=== PATIENT | female | born 1945 | race African-American/Black ===

== ENCOUNTER 2016-10-23 22:36 | Inpatient (IN) | payer MEDICARE, OTHER ==
--- NOTE | ~2016-10-23 | CO ---
Unit #: [id number] #: [id number] Patient: CLAIRE BAUTISTA [id number] [facility]. [address] [place], [place] [address] [id number] I MR#: [id number] NAME: CLAIRE BAUTISTA ROOM: 55 Age: 71 Sex: F Admission Date: 10/24/2016 : 1945 Attending Physician: Wilian Barrios M.D. Primary Care Physician: Arely Rodriguez M.D. Consultation Date: 10/27/2016 CONSULTATION REPORT REASON FOR CONSULTATION Dyspnea. HISTORY OF PRESENT ILLNESS This is a 71-year-old female, who presented to the hospital with a complaint of lower extremity edema. She states she has had swelling in both of her legs for the past one week, but this has occurred for her off and on for quite some time. She also complains of shortness of breath mostly on exertion, but has occurred at rest. She noted an increase in her abdominal girth, but unsure of weight gain. Upon further questioning, she states she has sharp left anterior and left inframammary chest pain that radiates to her mid back, lasted for 5 minutes at that time. Her pain occurs off and on and has been ongoing for while. She has sometimes associated diaphoresis and dyspnea. No nausea. Chest pain and shortness of breath has awakened her from sleep. She was discharged from [facility] in mid 09/2016 with pulmonary embolism where she was started on Eliquis. She came to the emergency room for evaluation, where chest x-ray show cardiomegaly, but there was no evidence of heart failure. Bilateral lower extremity Doppler was negative for deep vein thrombosis. BNP mildly elevated at 272. D-dimer 468. Her troponin was negative with EKG showing no acute findings. She has risk factors for ischemic heart disease that includes hypertension, hyperlipidemia, diabetes, and obesity. She was seen by a quality assistant at this facility in 2013 for chest pain that was negative. She has no history of cardiac catheterization in the past. PAST MEDICAL HISTORY 1. A 2D echocardiogram on 10/24/2016 showed an ejection fraction equal to 50% to 55% with mild mitral regurgitation, [id number] tricuspid regurgitation, and right ventricular systolic pressure of 28 mmHg. 2. Hypertension. 3. Hyperlipidemia. 4. Diabetes mellitus type 2. 5. Peripheral neuropathy. 6. Rheumatoid arthritis. 7. Asthma. 8. PE diagnosed in 09/2015, on Eliquis. 9. History of seizures 5 years ago. PAST SURGICAL HISTORY 1. Bilateral total knee replacements. 2. Appendectomy. 3. Hysterectomy. Unit #: [id number] #: [id number] Patient: CLAIRE BAUTISTA SOCIAL HISTORY The patient lives at home alone. She has never smoked. She denies illicit drug or alcohol use. FAMILY HISTORY Negative for coronary artery disease. ALLERGIES No known drug allergies. HOME MEDICATIONS Amitriptyline 25 mg q.h.s., Norvasc 10 mg daily, Eliquis 5 mg b.i.d., aspirin 325 mg daily, Lipitor 40 mg daily, baclofen 10 mg b.i.d. p.r.n., carvedilol 40 mg daily, Zyrtec 10 mg daily, Catapres 0.2 mg b.i.d., docusate sodium 100 mg b.i.d., Flonase 0.05% nasal spray one spray each nostril daily, Advair 100/50 Diskus one puff b.i.d., furosemide 20 mg daily, Neurontin 100 mg q.i.d., glipizide 5 mg daily, guaifenesin 600 mg b.i.d., Prinivil 40 mg daily, loratadine 10 mg daily. REVIEW OF SYSTEMS CONSTITUTIONAL: Negative for fever or chills. Has no weight gain or weight loss. HEENT: No headache, hearing or vision change, or difficulty with swallowing. Has no dizziness. CARDIOVASCULAR: Has chest pain as described in the HPI. Denies palpitations. No paroxysmal nocturnal dyspnea or orthopnea. No syncope or near syncope. RESPIRATORY: Positive for dyspnea at rest and on exertion. Has no cough or hemoptysis. GASTROINTESTINAL: No abdominal pain, nausea, or vomiting. No constipation or melena. EXTREMITIES: Positive for lower extremity edema. PHYSICAL EXAMINATION VITAL SIGNS: Blood pressure is 167/76, heart rate 86, temperature 99.1, BMI 31. GENERAL: This is an obese 71-year-old female, who is in no acute distress. NEUROLOGIC: She is awake, alert, and oriented. There are no focal weaknesses. NECK: Trachea is midline. No thyromegaly or lymphadenopathy. No jugular venous distention. HEART: S1, S2. Heart sounds are normal. No murmurs, rubs, or clicks. Regular rate and rhythm. LUNGS: Clear without rales, rhonchi, or wheezing. ABDOMEN: Soft and nontender with bowel sounds are present. EXTREMITIES: With 1+ leg edema. SKIN: Warm and dry. DIAGNOSTIC STUDIES LABORATORY RESULTS: Glucose 95, BUN 15, creatinine 0.8. Sodium 130, potassium 3.9. CK total 150, MB 1.5, MB index 1.0, troponin less than 0.05 and less than 0.03. BNP 272. TSH 0.84. D-dimer 468. White count 4.4, hemoglobin 10.5, hematocrit 31.8, platelet count is 189. IMAGING STUDIES: Chest x-ray shows mild cardiomegaly, but no active Unit #: [id number] #: [id number] Patient: CLAIRE BAUTISTA disease. Ultrasound of bilateral lower extremities negative for deep vein thrombosis. CARDIOVASCULAR STUDIES: EKG; normal sinus rhythm, rate of 77 beats per minute with left ventricular hypertrophy. IMPRESSION 1. Dyspnea, questionable etiology. 2. Questionable angina pectoris. 3. Recent pulmonary embolism on 09/19/2016. 4. Hypertension. 5. Hyperlipidemia. 6. Diabetes mellitus type 2. PLAN 1. Cardiology was consulted for evaluation of dyspnea. Echocardiogram shows normal left ventricular systolic function with no diastolic dysfunction noted. Lower extremity edema may be secondary to Norvasc. 2. The patient has multiple risk factors for ischemic heart disease and has symptoms of angina pectoris. We will proceed with Lexiscan Cardiolite stress test to rule out coronary artery disease. Unable to do cardiac catheterization, because of recent pulmonary embolism and the need to continue anticoagulation with Eliquis. 3. We will follow the patient with you. Thank you for allowing us to assist with this patient's care. Dictated by... Sophia Magaña M.D. AEP/parker TD: 10/28/2016 05:05 JOB #: [id number] CONSULTATION REPORT Page 1 of 1 X Bin Currie APRN CONSULTATION REPORT
--- NOTE | ~2016-10-23 | EKG ---
PATIENT: CLAIRE BAUTISTA UNIT #: [id number] Ventricular Rate: 113 BPM Atrial Rate: 288 BPM QRS Duration: 82 ms Q-T Interval: 332 ms QTC Calculation(Bezet): 455 ms Calculated R [place]: 58 degrees Calculated T [place]: 63 degrees Diagnosis Line: Atrial fibrillation with rapid ventricular Diagnosis Line: response with premature ventricular or aberrantly Diagnosis Line: conducted complexes Diagnosis Line: Abnormal ECG Diagnosis Line: No previous ECGs available Diagnosis Line: Confirmed by MAYLIN RITCHIE MD ([id number]) on Diagnosis Line: 11/02/2016 1:13:56 PM INTERPRETING MD: JAMILA
--- NOTE | ~2016-10-23 | TH ---
Unit #: [id number] #: [id number] Patient: CLAIRE BAUTISTA [id number] [address] [address] [id number] I MR#: [id number] NAME: CLAIRE BAUTISTA : 1945 SEX: F STUDY DATE/TIME: 10/28/2016 UNIT: C5B ROOM: 554 STUDY DESCRIPTION: Cardiolite study Attending Physician: Wilian Barrios M.D. Primary Care Physician: Arely Rodriguez M.D. CARDIOLOGY REPORT EXAM Cardiolite study. FINDINGS This 71-year-old patient received 0.4 mg of Lexiscan intravenously followed by 32.6 mCi of Tc-99m Cardiolite and images were obtained according to a standard SPECT protocol. For rest images, 10.62 mCi of Cardiolite was injected. Images were reviewed in both phases. The overall study quality is excellent. LV cavity size is normal on both images. There is no lung activity. RV is normal. Rotating raw data showed no significant artifact, soft tissue attenuation or GI uptake. Review of SPECT images showed normal homogeneous radiotracer concentration throughout the myocardium on both the stress and rest images. Gated images showed normal LV wall thickening and wall motion with an estimated LV ejection fraction 82%. IMPRESSION Myocardial perfusion imaging is normal. No evidence of ischemia or infarct. Normal LV dimensions. Normal systolic LV function with an estimated LV ejection fraction 82%. Dictated by... Kristi Rider/rogelio TD: 10/29/2016 11:16 JOB #: [id number] CARDIOLOGY REPORT Page 1 of 1 X Sudha Lorenzo MD CARDIOLOGY REPORT
--- NOTE | ~2016-10-23 | TOC ---
Unit #: [id number] #: [id number] Patient: CLAIRE BAUTISTA [id number] [facility]. [address] [place], [place] [address] [id number] I MR#: [id number] NAME: CLAIRE BAUTISTA ROOM: 554 Age: 71 Sex: F Admission Date: 10/24/2016 : 1945 Attending Physician: Wilian Barrios M.D. Primary Care Physician: Arely Rodriguez M.D. TRANSFER OF CARE SUMMARY ADDENDUM The patient completed her course of amiodarone drip and converted to sinus rhythm. Amiodarone drip was discontinued at noon today and patient received her first dose of amiodarone 200 mg p.o. today. She will continue this medication daily. Her rhythm per telemetry strip review is sinus rhythm, most recent heart rate 79. She has been evaluated by Dr. Sparks and he has indicated that she can be discharged on her present dose of amiodarone and present dose of beta blockers. She remains in stable condition, is afebrile. Vital signs are stable. DISCHARGE MEDICATIONS Per discharge medication reconciliation form: 1. Advair 100/50 Diskus 100 mcg inhaled b.i.d. 2. Cordarone 200 mg p.o. at noon. Prescription written for #30 with one refill. 3. Flonase 0.05% nasal spray one spray in each nostril daily. 4. Bactroban applied topically b.i.d. to left lower extremity wound. Bedside supply to be sent home with patient. 5. Eliquis 5 mg p.o. b.i.d. 6. Neurontin 100 mg p.o. t.i.d. 7. Amitriptyline 25 mg p.o. at bedtime. 8. Nystatin 5 mL swish and swallow p.o. q.6 hours until completes oral antibiotic therapy. 9. Loratadine 10 mg p.o. daily. 10. Coreg 12.5 mg p.o. b.i.d. 11. Colace 100 mg p.o. b.i.d. 12. Cephalexin 500 mg p.o. q.i.d. x6 more days for a total of 10 days of oral antibiotic therapy. Prescription written #24, no refills. 13. Furosemide 40 mg p.o. daily. 14. Humibid LA 600 mg p.o. b.i.d. 15. Lipitor 40 mg p.o. at bedtime. 16. Cozaar 100 mg p.o. at bedtime. Prescription written #30 plus one refill. 17. Zantac 150 mg p.o. b.i.d. over the counter. 18. Aspirin 81 mg p.o. daily. 19. Lioresal 10 mg p.o. b.i.d. p.r.n. muscle spasms. 20. Glucotrol 5 mg p.o. daily before breakfast. 21. KCl 20 mEq p.o. daily. Prescription written #30, no refills. WOUND CARE INSTRUCTIONS The patient's left lower extremity wound is to be cleaned with (1) wound cleanser, which is to be sent home with patient. Wound is to be cleansed b.i.d. The wound is to be covered with Hydrofera Blue Ready and Unit #: [id number] #: [id number] Patient: CLAIRE BAUTISTA secured with stretch netting. She is to keep the wound clean and dry. DISCHARGE INSTRUCTIONS 1. The patient is to continue 1000 mL per 24 hour fluid restriction until seen by her primary care physician for followup. 2. She is to continue on a 4 g sodium healthy heart diet with mechanical ground consistency per hospital diet. 3. She is to call and schedule a followup appointment with Dr. Rodriguez, her primary care physician, in five to seven days to follow up on general medical evaluation and left lower extremity wound. 4. She is to call and schedule followup appointment with Dr. Gore in her office to be seen in four to six weeks. 5. Home health. The patient has been given an order and is agreeable to be followed by [facility] after discharge for compliance with fluid restriction and to evaluate left lower extremity wound. They are also to educate her in healthy heart 4 g sodium diet. Discharge instructions have been discussed in detail with the patient and her significant other, who is present in the room today. They verbalized understanding of this information and their questions were answered. Dictated by... Frieda Abernathy A.P.R.N. for Kristi Quintanilla/fahad TD: 11/02/2016 16:33 JOB #: [id number] TRANSFER OF CARE SUMMARY Page 1 of 1 X Frieda Abernathy APRN X TRANSFER OF CARE SUMMARY
--- NOTE | ~2016-10-23 | CR72 ---
[facility] A Service of [facility] & [facility] RADIOLOGY TEXT RESULTS PATIENT: CLAIRE BAUTISTA LOCATION: [facility] [id number] : [birth year] UNIT #: [id number] AGE: [address]: Susana Duggan MD SEX: F ORDER DR: [id number] [facility] [address]. [place], [place] [address] [id number] MR#: [id number] #: [id number] NAME: CLAIRE BAUTISTA : 1945 SEX: F STUDY DATE/TIME: 10/23/2016 23:04 UNIT: [facility] ROOM: STUDY DESCRIPTION: CR Chest Single View Portable Attending Physician: Maxim Helm M.D. Ordering Physician: Ed Vladimir Keller M.D. Primary Care Physician: Arely Rodriguez M.D. MEDICAL IMAGING REPORT This report is preliminary unless electronic signature is present EXAM Portable chest 10/23/2016 at 23:04 INDICATION Chest pain bilateral leg swelling started today. FINDINGS AP portable chest is therefore with 09/14/2016. There is mild cardiomegaly. Lungs are clear. No pneumothorax is seen. There is atherosclerotic disease in the aorta. IMPRESSION Mild cardiomegaly. No active disease. Dictated by... Yevgeniy Dawn Jr., M.D. THIS IS AN ELECTRONICALLY VERIFIED REPORT Yevgeniy Dawn Jr., M.D. at 10/24/2016 6:01 AM SARAH/juan luis TD: 10/24/2016 03:49 JOB #: [id number] MEDICAL IMAGING REPORT Page 1 of 1 COPY
--- NOTE | ~2016-10-23 | A ---
[facility] Nutrition Therapy DATE: 10/27/16 Patient: CLAIRE BAUTISTA Physician: LUCA Address: [address] [place] [address] Room/Bed: [address] [place] [address], Zip: [place] [address] Admit Date: 10/24/16 Date of : 45 Height: Weight: 213 97 NUTRITIONAL ASSESSMENT: REASON: Notified by PT; patient request for diabetic diet education Admitting Dx: 71 y/o female admitted with chest pain and pedal edema PMH: GERD, DM, PE, HTN, GUZMAN, HLD, asthma, neuropathy Anthropometrics: Ht: 64", Wt: 97 kg, BMI: 36.7 (Stage II obese) Labs: Na 130, glucose WNL, POC 114-140, no A1C or lipid panel available Meds: Reviewed Diet: Mechanical soft/consistent carb Assessment: Chart reviewed, events noted. Patient requested diabetic diet education. No A1C lab or lipid panel available, glucose well controlled at this time on oral medications only. Patient has had diabetes for ~4 years, states she is unsure of her A1C level. RD provided both verbal and written diabetic diet education with 5-day 1500 calorie sample meal plan and contact info. Patient wants to lose weight, seems motivated to follow diet however I question her understanding of the information based on her education level. Family member in room present for education. Encouraged patient to have her PCP check her A1C level. See recs below. Recommendations: Continue current diet. Check A1C lab. RD provided diabetic diet education as desribed above. Will fully assess at lenght of stay. Respectfully, Delmi Gates RD, [facility] [employer] [facility] cc: client file
--- NOTE | ~2016-10-23 | ST ---
Unit #: [id number] #: [id number] Patient: CLAIRE BAUTISTA [id number] [address] [address] [id number] I MR#: [id number] NAME: CLAIRE BAUTISTA : 1945 SEX: F STUDY DATE/TIME: 10/28/2016 UNIT: C5B ROOM: 554 STUDY DESCRIPTION: Stress test Attending Physician: Wilian Barrios M.D. Primary Care Physician: Arely Rodriguez M.D. CARDIOLOGY REPORT EXAM Stress test. FINDINGS Baseline EKG: Normal sinus rhythm. Nonspecific ST-T changes. Resting heart rate: 71 per minute. Blood pressure: 193/96. This 71-year-old patient received 0.4 mg of Lexiscan intravenously. During the test, no ischemic changes noted. No arrhythmias noted. Blood pressure was stable. INTERPRETATION 1. Nondiagnostic EKG during Lexiscan. 2. No arrhythmias noted. 3. Stable blood pressure during the test. 4. Correlate with the Cardiolite study. Dictated by... Kristi Rider/rogelio TD: 10/29/2016 11:07 JOB #: [id number] CARDIOLOGY REPORT Page 1 of 1 X Sudha Lorenzo MD CARDIOLOGY REPORT
--- NOTE | ~2016-10-23 | US84 ---
[id number] [facility]. [facility] [address]. [place], [place] [address] [id number] MR#: [id number] Acc #: [id number] NAME: CLAIRE BAUTISTA : 1945 SEX: F STUDY DATE/TIME: 10/24/2016 16:16 UNIT: C5B ROOM: 554 STUDY DESCRIPTION: US LE Veins Complete Fabien Stdy Attending Physician: Wilian Barrios M.D. Ordering Physician: Susana Duggan M.D. Primary Care Physician: Arely Rodriguez M.D. MEDICAL IMAGING REPORT This report is preliminary unless electronic signature is present EXAM Bilateral lower extremity venous ultrasound HISTORY Bilateral lower extremity swelling and tenderness for 3 days. The patient has been on blood thinners before. TECHNIQUE Venous ultrasound examination of both lower extremities was performed using grayscale, spectral Doppler and color flow Doppler imaging. FINDINGS The examination is negative. There is no evidence of deep venous thrombus from the groin to the lower calf bilaterally. Visualized greater saphenous veins are also patent. IMPRESSION Negative examination. No evidence of lower extremity deep venous thrombosis. Dictated by... Mahesh Spicer M.D. THIS IS AN ELECTRONICALLY VERIFIED REPORT Mahesh Spicer M.D. at 10/25/2016 8:41 AM FEL/to TD: 10/24/2016 18:28 JOB #: [id number] MEDICAL IMAGING REPORT Page 1 of 1 COPY
--- NOTE | ~2016-10-23 | TOC ---
Unit #: [id number] #: [id number] Patient: CLAIRE BAUTISTA [id number] [address] [place], [place] [address] [id number] I MR#: [id number] NAME: CLAIRE BAUTISTA ROOM: 554 Age: 71 Sex: F Admission Date: 10/24/2016 : 1945 Attending Physician: Wilian Barrios M.D. Primary Care Physician: Arely Rodriguez M.D. TRANSFER OF CARE SUMMARY ADMISSION DIAGNOSES 1. Bilateral pedal edema with weeping extremities. 2. Recent admission to [facility] for pulmonary embolus, on Eliquis. 3. Rheumatoid arthritis. 4. Hypertension. 5. Type 2 diabetes mellitus with peripheral neuropathy. 6. Asthma. CURRENT DIAGNOSES 1. Atrial fibrillation with rapid ventricular response, on amiodarone drip and beta-darrell. 2. Bilateral lower extremity edema, possibly secondary to Norvasc, improving. 3. Left lower extremity cellulitis, improving. 4. Diabetes mellitus type 2, stable. 5. Dyspnea status post Cardiolite stress test with negative Cardiolite and negative cardiac enzymes. 6. Gastroesophageal reflux disease. CONSULTANTS 1. Chucky Sparks M.D., cardiology. 2. ELENI Alaniz. PERTINENT DIAGNOSTIC STUDIES CARDIOVASCULAR: On 10/28/16, Cardiolite stress test. Impression - Myocardial perfusion imaging is normal. No evidence of ischemia or infarct. Normal LV dimensions. Normal systolic LV function with an estimated LV ejection fraction 82%. Twelve-lead EKG, 10/31/16 at 2036 - Atrial fibrillation with RVR with PVC or aberrantly conducted complexes. Abnormal ECG. IMAGING: On 10/24/16, bilateral lower extremity duplex venous Doppler. Impression - Negative examination. No evidence of lower extremity DVT. On 10/23/16, portable chest x-ray. Impression - Mild cardiomegaly. No active disease. LABORATORY (most recent results): WBC 8.1, hemoglobin 11.2, hematocrit 33.5, platelet count 238,000. Sodium 133, potassium 4.4, chloride 100, CO2 26, glucose 111, BUN 14, creatinine 0.9, calcium 8.4, magnesium 2.2. Left lower extremity wound culture final - Staphylococcus aureus sensitive to cefazolin and clindamycin, oxacillin, penicillin and vancomycin. Unit #: [id number] #: [id number] Patient: CLAIRE BAUTISTA Hemoglobin A1C 5.9. Accu-Cheks over the past 24 hours - 96 to 149. CURRENT MEDICATIONS 1. IV amiodarone 1 mg/min for 6 hours to be followed by 0.5 mg/minute. There is an order for the patient to be started on amiodarone 200 mg p.o. daily tomorrow and IV amiodarone discontinued tomorrow at noon. 2. Cozaar. 3. Neurontin. 4. Aspirin. 5. NovoLog low dose sliding scale insulin. 6. Cephalexin 500 mg p.o. q.i.d. 7. Nitroglycerin 0.4 mg sublingual p.r.n. chest pain q.5 minutes x3. 8. Furosemide. 9. Nystatin. 10. Zofran q.4 hours p.r.n. 11. Lipitor 40 mg p.o. q.h.s. 12. Amitriptyline 25 mg p.o. q.h.s. 13. Claritin 10 mg p.o. daily. 14. Humibid LA 600 mg p.o. daily. 15. Coreg 12.5 mg p.o. daily. 16. Eliquis 5 mg p.o. b.i.d. 17. Bactroban topically to left lower extremity wound. 18. Dulera 100 mcg/5 mcg 2 puffs inhaled b.i.d. NOTE: Please refer to current medications in [facility]. HOSPITAL COURSE The patient is a 71-year-old female who presented to [facility] on the date of admission with complaints of pedal edema and chest pain. Please refer to the history and physical report for complete details. Patient was admitted to the hospital for further evaluation and management of her condition. It was thought the pedal edema could possibly be related to vasodilator effects of Norvasc. It was discontinued. Patient was treated with IV diuretics, as she has experienced some decrease in bilateral lower extremity pedal edema. She was noted to have weeping of bilateral lower extremities on admission and ultimately developed a large (1) on the left pretibial area of the left lower extremity. Vale Smyth from wound care center was consulted for further evaluation and management of the patient's leg wound. This wound was evaluated by Dr. Barrios, and the patient was started on clindamycin. Results of the patient's left lower extremity wound culture returned, and the patient was changed from clindamycin orally to cephalexin 500 mg p.o. q.i.d. Per review of Dr. Barrios's documentation, she is to continue Keflex for a total of 10 days of antibiotic therapy. The left lower extremity cellulitis is improving at this time. Patient complained of dyspnea and had initially complained of some chest pain at the time of admission. She underwent a Lexiscan Cardiolite stress test with results as indicated above. Per review of Dr. Sparks's progress note yesterday, the plan is to ambulate the patient in the smyth and to possibly discharge home this morning. However, yesterday afternoon upon my examination, the patient was complaining of severe reflux without other associated symptoms. Upon discussion with Dr. Barrios, the plan was to reevaluate the patient this morning. In the early evening yesterday, patient was noted to exhibit atrial fibrillation with RVR. Dr. Sparks was notified, and the patient was given a Cardizem bolus and started on a Cardizem drip. Later last night the orders for the Cardizem drip were Unit #: [id number] #: [id number] Patient: CLAIRE BAUTISTA, and the patient was started on IV amiodarone, at which time she received 150 mg IV bolus followed by the drip as dictated above. Patient has been evaluated by Dr. Sparks today, whose plan is to continue beta-blockers and to start the amiodarone drip hopefully to convert and maintain sinus rhythm. The patient has been evaluated by Dr. Barrios today. At this time the patient is stable from a general medical and cardiac standpoint, and the plan will be to discharge the patient home once medically stable and cleared by cardiology. Please note the patient continues on Eliquis 5 mg p.o. b.i.d., which she has received since admission to this facility. Complete discharge medications and discharge instructions, as well as an update on the patient's condition, will be dictated by my colleague on the day of discharge. Dictated by... Frieda Abernathy A.P.R.N. for Kristi Kaufman/liam TD: 11/01/2016 15:05 JOB #: [id number] TRANSFER OF CARE SUMMARY Page 1 of 1 X Frieda Abernathy APRN X TRANSFER OF CARE SUMMARY
--- NOTE | ~2016-10-23 | HP ---
Unit #: [id number] #: [id number] Patient: CLAIRE BAUTISTA [id number] [address] [place], [place] [address] [id number] MR#: [id number] NAME: CLAIRE BAUTISTA ROOM: Age: 71 Sex: F Admission Date: 10/23/2016 : 1945 Attending Physician: Maxim Helm M.D. Primary Care Physician: Arely Rodriguez M.D. HISTORY AND PHYSICAL CHIEF COMPLAINT Pedal edema and chest pain. HISTORY This 71-year-old female with AODM, neuropathy, anticoagulated for pulmonary embolus, hypertension and GUZMAN, is admitted for complaints of pedal edema. The patient states that she has experienced pedal edema in the past and her Lasix was apparently stopped. Recently pedal edema has worsened bilaterally with weeping of her legs bilaterally. Also has been experiencing sharp right-sided chest pain. She tells me that she was admitted to [facility] about a month ago for chest pain and was diagnosed with a pulmonary embolus requiring anticoagulation with Eliquis. She has been taking her Eliquis. In the ER she does have significant swelling of her legs bilaterally with weeping. She was given 40 mg of IV Lasix and 10 mg of [place] with improvement. PAST MEDICAL HISTORY 1. AODM with peripheral neuropathy. 2. Admission to [facility] last month for what sounds to be a pulmonary embolus, now anticoagulated. 3. Rheumatoid arthritis. 4. Hypertension. 5. GERD. 6. Osteoporosis. 7. Hyperlipidemia. 8. Asthma. 9. Admission for chest pain and accelerated hypertension 04/2014. 10. Echo ejection fraction greater than 55% with mild LVH, mild MR, moderate TR. Right ventricular systolic pressures are 40 to 50 mmHg. Cardiolite stress test was negative for ischemia. 11. Bilateral total knee replacements. 12. Appendectomy. 13. Hysterectomy. ALLERGIES No known drug allergies. HOME MEDICATIONS Elavil 25 mg q.h.s.; Norvasc 10 mg daily; Eliquis 5 mg b.i.d.; aspirin 325 mg daily; Lipitor 40 mg daily; baclofen 10 mg b.i.d. p.r.n.; Coreg CR 40 mg daily; Zyrtec 10 mg daily; clonidine 0.2 mg b.i.d.; Colace 100 mg b.i.d.; Flonase nasal spray; Advair 100/50 one puff b.i.d.; Neurontin 100 Unit #: [id number] #: [id number] Patient: CLAIRE BAUTISTA R mg q.i.d.; glipizide 5 mg daily; guaifenesin 600 mg b.i.d.; lisinopril 40 mg daily; and Claritin 10 mg daily. FAMILY HISTORY Negative for blood clots or CAD. SOCIAL HISTORY The patient lives with her daughter. She is accompanied by her boyfriend. She is a lifelong nonsmoker and does not drink alcohol. REVIEW OF SYSTEMS Notable for leg edema and weeping, chest pain, AODM, neuropathy, RA, hypertension, GERD, osteoporosis, hyperlipidemia, asthma, above mentioned surgeries, pulmonary embolus. All other systems reviewed and otherwise negative. PHYSICAL EXAMINATION GENERAL: Pleasant 71-year-old female looks younger than stated age. VITAL SIGNS: Temperature 98.8, pulse 81, respiration 18, initial blood pressure 178/84. Current blood pressure has improved. O2 saturation 100% on room air. HEENT: Eyes - PERRLA, extraocular muscles are intact. Pharynx is benign, edentulous. NECK: Supple without adenopathy or thyromegaly. CHEST: Clear. CARDIAC: Normal S1 and S2 without definite murmur. ABDOMEN: Bowel sounds are present. No hepatosplenomegaly, tenderness or masses. EXTREMITIES: Notable for significant bilateral pedal edema with weeping lesions. Pedal pulses are present but diminished. No ulcers on the feet. NEUROLOGIC: Patient is awake and alert and oriented. Cranial nerves are intact. Equal strength throughout. DIAGNOSTIC STUDIES ADMISSION LABS: Hematocrit is 32.5, down from 36.8 in May. MCV 100.5, normal white count and platelet count. Cardiac makers are negative. Coags are normal. SMA 12 - sodium 131, chloride 99, BNP 272. IMAGING STUDIES: Chest x-ray - mild cardiomegaly but no acute disease. CARDIOLOGY STUDIES: EKG - normal sinus rhythm rate 77, LVH. ASSESSMENT 1. Bilateral pedal edema with weeping extremities. Could be related in part to Norvasc, rule out cor pulmonale or LV dysfunction. 2. Recent admission to [facility] for pulmonary embolus on Eliquis. Patient did complain of some chest discomfort. 3. Rheumatoid arthritis. 4. Hypertension. 5. AODM with peripheral neuropathy. 6. Asthma. PLANS 1. IV Lasix, obtain I's and O's and daily weights. 2. Change Norvasc to hydralazine. 3. Obtain echo, D-dimer, Dopplers of legs and repeat cardiac enzymes. 4. Obtain recent records from [facility]. 5. TSH. Unit #: [id number] #: [id number] Patient: CLAIRE BAUTISTA Dictated by Susana Duggan M.D. AML/ts TD: 10/24/2016 05:15 JOB #: [id number] HISTORY AND PHYSICAL Page 1 of 1 X Susana Duggan MD X HISTORY AND PHYSICAL
--- NOTE | ~2016-10-23 | EKG ---
PATIENT: CLAIRE BAUTISTA UNIT #: [id number] Ventricular Rate: 77 BPM Atrial Rate: 77 BPM P-R Interval: 160 ms QRS Duration: 78 ms Q-T Interval: 374 ms QTC Calculation(Bezet): 423 ms P Edmond: 49 degrees Calculated R Edmond: 3 degrees Calculated T Edmond: 28 degrees Diagnosis Line: Normal sinus rhythm Diagnosis Line: Possible Left atrial enlargement Diagnosis Line: Left ventricular hypertrophy Diagnosis Line: Abnormal ECG Diagnosis Line: When compared with ECG of 03-JUN-2016 23:57, Diagnosis Line: Criteria for Septal infarct are no longer Present Diagnosis Line: Confirmed by MIS MALONEY MD ([id number]) on Diagnosis Line: 10/24/2016 1:32:19 PM INTERPRETING MD: AMARA BEARD
[~2016-10-23 22:36] MED LIST: ADVAIR 100-501 EAC1 IH; ADVAIR 100-501 EACH IH; ADVAIR 1001 DISK W/D PO; ALLERGY RELIEF10 M1 PO; AMLODIPINE BESYL5 MG PO; ANTIVERT PO; ASPIRIN ENTERI325 M1 PO; BACLOFEN10 MG PO; BACTRIM DS TABL1 TA1 PO; CATAPRES-TTS-20.2 M1 PO; CLARITIN10 M3 PO; CLONIDINE PO; COATED ASPIRIN325 M1 PO; COLACE PO; COREG CR20 M1 PO; COREG CR40 M1 PO; EVOXAC30 MG PO; FERRO-TIME325 MG PO; FLEXERIL10 M1; FLEXERIL10 MG PO; FLONASE 0.05% N16 G1; FLONASE16 GM; FOLIC ACID PO; FOLIC ACID1 MG PO; FOSAMAX70 MG PO; GLIPIZIDE5 MG/BOTT1 PO; GLUCOTROL PO; GLUCOTROL5 MG/BOTTL PO; GLYCOLAX119 GM; GLYCOLAX119 GM PO; GLYCOLAX14 EA PO; HUMIRA CRO40 MG/0.8; HUMIRA40 MG/0.1 SQ; HYDROCHLOROTHIA25 MG PO; HYDROCODONE-APA1 T58 PO; KENALOG IN ORABA5 GM TOP; LASIX20 MG PO; LIDEX 0.05% CR15 GM EXT; LIPITOR40 MG PO; METHOTREXATE2.5 MG PO; MICROZIDE12.5 M1 PO; MOBIC PO; MULTI VITAMIN1 EACH PO; MULTIPLE VITAMI1 T13 PO; NEURONTIN100 MG PO; NORCO 10-325 TA1 TAB PO; NORVASC10 MG PO; PRILOSEC PO; PRILOSEC20 M1 PO; PRINIVIL40 MG PO; PYRIDIUM PO; SINGULAIR PO; VISTARIL PO; VOLTAREN100 GM PO; ZESTRIL40 MG PO; ZOFRAN ODT4 MG PO; ZOFRAN ODT4 MG SL; ZYRTEC10 M1 PO
[2016-10-24 00:17] LABS: BASOPHIL% 0.6 % (0-2.5); EOSINOPHIL# 0.1 X10e3 (0-0.7); EOSINOPHIL% 1.9 % (0.0-7.0); HEMATOCRIT 32.5 % (35.0-45.0); HEMOGLOBIN 10.6 gm/dL (12.0-16.0); LYMPHOCYTE# 2.2 X10e3 (1.0-3.5); LYMPHOCYTE% 41.4 % (17.0-45.0); MEAN CELL VOLUME 100.5 FL (83-96); MEAN CORPUSCULAR HEMOGLOBIN 32.7 PG (28-34); MEAN CORPUSCULAR HGB CONC 32.5 g/dL (30-36); MEAN PLATELET VOLUME 9.2 FL (6.5-11.5); MONOCYTE# 0.7 X10e3 (0-1.0); MONOCYTE% 13.2 % (3.0-12.0); NEUTROPHIL# 2.2 X10e3 (1.5-7.1); NEUTROPHIL% 42.9 % (40-75); PLATELET COUNT 201 X10e3 (140-420); RED BLOOD COUNT 3.24 X10e (3.90-5.30); RED CELL DISTRIBUTION WIDTH 15.1 % (11.0-15.5); WHITE BLOOD COUNT 5.2 X10e3 (4.0-10.5)
[2016-10-24 00:31] LABS: PARTIAL THROMBOPLASTIN TIME 27.1 SECONDS (23.5-31.3); PROTHROMBIN TIME (PATIENT) 10.5 SECONDS (9.6-11.5)
[2016-10-24 00:39] LABS: BILIRUBIN, DIRECT 0.2 mg/dL (0.0-0.2); BILIRUBIN,INDIRECT 0.6 mg/dL (0.0-0.9); BILIRUBIN,TOTAL 0.8 mg/dL (0.2-2.0); CALCIUM SERUM 8.7 mg/dL (8.4-10.2); CREATININE SERUM 0.9 mg/dL (0.6-1.4); DIFF IND NO; GLOM FILT RATE Estimated 74.6 mL/min (>60); POTASSIUM 4.2 mmol/L (3.5-5.1); PROTEIN TOTAL SERUM 6.6 g/dL (6.0-8.3)
[2016-10-24 01:01] LABS: POC - CKMB <1.0 ng/mL (0.0-7.9); POC - TROPONIN <0.05 ng/mL (<=0.05)
[2016-10-24] MEDS ORDERED: AMITRIPTYLINE H25 MG PO (01:04)
[2016-10-24] MEDS ORDERED: NORVASC10 MG PO (01:05)
[2016-10-24] MEDS ORDERED: LIPITOR40 MG PO (01:06)
[2016-10-24] MEDS ORDERED: ASPIRIN1 GM PO (01:06)
[2016-10-24] MEDS ORDERED: ELIQUIS5 MG PO (01:06)
[2016-10-24] MEDS ORDERED: BACLOFEN10 MG PO (01:07)
[2016-10-24] MEDS ORDERED: COREG CR40 M1 PO (01:08)
[2016-10-24] MEDS ORDERED: ALL DAY ALLERGY10 M3 PO (01:08)
[2016-10-24] MEDS ORDERED: DOCUSATE SODIU100 MG PO (01:09)
[2016-10-24] MEDS ORDERED: CATAPRES-TTS-20.2 M1 PO (01:09)
[2016-10-24] MEDS ORDERED: FLONASE 0.05% N16 GM (01:10)
[2016-10-24] MEDS ORDERED: ADVAIR 100-501 EACH INH (01:10)
[2016-10-24] MEDS ORDERED: NEURONTIN100 MG PO (01:11)
[2016-10-24] MEDS ORDERED: LASIX20 MG PO (01:11)
[2016-10-24] MEDS ORDERED: GLUCOTROL XL5 M1 PO (01:12)
[2016-10-24] MEDS ORDERED: MUCINEX100 MG PO (01:13)
[2016-10-24] MEDS ORDERED: PRINIVIL40 MG PO (01:14)
[2016-10-24] MEDS ORDERED: ALLERGY RELIEF10 M1 PO (01:14)
[2016-10-24 02:55] LABS: POC - CKMB <1.0 ng/mL (0.0-7.9); POC - TROPONIN <0.05 ng/mL (<=0.05)
[2016-10-24 10:57] LABS: BUN/CREATININE RATIO 17.5; CALCIUM SERUM 9.1 mg/dL (8.4-10.2); CREATININE SERUM 0.8 mg/dL (0.6-1.4); POTASSIUM 3.5 mmol/L (3.5-5.1)
[2016-10-24 11:15] LABS: MB 1.5 ng/ml
[2016-10-25 07:48] LABS: HEMATOCRIT 32.3 % (35.0-45.0); HEMOGLOBIN 10.6 gm/dL (12.0-16.0); MEAN CELL VOLUME 101.2 FL (83-96); MEAN CORPUSCULAR HEMOGLOBIN 33.2 PG (28-34); MEAN CORPUSCULAR HGB CONC 32.8 g/dL (30-36); MEAN PLATELET VOLUME 9.5 FL (6.5-11.5); RED BLOOD COUNT 3.19 X10e (3.90-5.30); RED CELL DISTRIBUTION WIDTH 15.8 % (11.0-15.5); WHITE BLOOD COUNT 4.1 X10e3 (4.0-10.5)
[2016-10-25 09:09] LABS: BUN/CREATININE RATIO 18.88; CALCIUM SERUM 8.5 mg/dL (8.4-10.2); CREATININE SERUM 0.9 mg/dL (0.6-1.4); GLOM FILT RATE Estimated 74.6 mL/min (>60); POTASSIUM 3.9 mmol/L (3.5-5.1)
[2016-10-26 08:15] LABS: ALBUMIN SERUM 3.2 g/dL (3.5-5.0); BILIRUBIN,TOTAL 0.7 mg/dL (0.2-2.0); BUN/CREATININE RATIO 19.09; CALCIUM SERUM 8.2 mg/dL (8.4-10.2); CREATININE SERUM 1.1 mg/dL (0.6-1.4); GLOM FILT RATE Estimated 58.5 mL/min (>60); MAGNESIUM 1.9 mg/dL (1.6-3.0); POTASSIUM 3.5 mmol/L (3.5-5.1); PROTEIN TOTAL SERUM 5.6 g/dL (6.0-8.3)
[2016-10-27 07:28] LABS: HEMATOCRIT 31.8 % (35.0-45.0); HEMOGLOBIN 10.5 gm/dL (12.0-16.0); MEAN CELL VOLUME 100.7 FL (83-96); MEAN CORPUSCULAR HEMOGLOBIN 33.1 PG (28-34); MEAN CORPUSCULAR HGB CONC 32.9 g/dL (30-36); MEAN PLATELET VOLUME 9.5 FL (6.5-11.5); RED BLOOD COUNT 3.16 X10e (3.90-5.30); RED CELL DISTRIBUTION WIDTH 15.4 % (11.0-15.5); WHITE BLOOD COUNT 4.4 X10e3 (4.0-10.5)
[2016-10-27 08:03] LABS: BUN/CREATININE RATIO 18.75; CALCIUM SERUM 8.1 mg/dL (8.4-10.2); CREATININE SERUM 0.8 mg/dL (0.6-1.4); MAGNESIUM 2.2 mg/dL (1.6-3.0); POTASSIUM 3.9 mmol/L (3.5-5.1)
[2016-10-28 05:51] LABS: BUN/CREATININE RATIO 18.88; CALCIUM SERUM 7.8 mg/dL (8.4-10.2); CREATININE SERUM 0.9 mg/dL (0.6-1.4); GLOM FILT RATE Estimated 74.6 mL/min (>60); MAGNESIUM 1.8 mg/dL (1.6-3.0); POTASSIUM 3.5 mmol/L (3.5-5.1)
[2016-10-29 22:32] LABS: HEMATOCRIT 34.5 % (35.0-45.0); HEMOGLOBIN 11.5 gm/dL (12.0-16.0); MEAN CELL VOLUME 99.2 FL (83-96); MEAN CORPUSCULAR HEMOGLOBIN 32.9 PG (28-34); MEAN CORPUSCULAR HGB CONC 33.2 g/dL (30-36); MEAN PLATELET VOLUME 9.8 FL (6.5-11.5); RED BLOOD COUNT 3.48 X10e (3.90-5.30); RED CELL DISTRIBUTION WIDTH 14.9 % (11.0-15.5); WHITE BLOOD COUNT 5.6 X10e3 (4.0-10.5)
[2016-10-29 23:02] LABS: BUN/CREATININE RATIO 14.44; CALCIUM SERUM 8.2 mg/dL (8.4-10.2); CREATININE SERUM 0.9 mg/dL (0.6-1.4); GLOM FILT RATE Estimated 74.6 mL/min (>60); MAGNESIUM 1.7 mg/dL (1.6-3.0); POTASSIUM 3.2 mmol/L (3.5-5.1)
[2016-10-30 04:52] LABS: HEMATOCRIT 33.5 % (35.0-45.0); HEMOGLOBIN 11.2 gm/dL (12.0-16.0); MEAN CELL VOLUME 99.3 FL (83-96); MEAN CORPUSCULAR HEMOGLOBIN 33.1 PG (28-34); MEAN CORPUSCULAR HGB CONC 33.4 g/dL (30-36); MEAN PLATELET VOLUME 9.8 FL (6.5-11.5); RED BLOOD COUNT 3.38 X10e (3.90-5.30); RED CELL DISTRIBUTION WIDTH 14.9 % (11.0-15.5); WHITE BLOOD COUNT 8.1 X10e3 (4.0-10.5)
[2016-10-30 06:41] LABS: BUN/CREATININE RATIO 17.5; CALCIUM SERUM 8.6 mg/dL (8.4-10.2); CREATININE SERUM 0.8 mg/dL (0.6-1.4); MAGNESIUM 2.6 mg/dL (1.6-3.0); POTASSIUM 4.2 mmol/L (3.5-5.1)
[2016-10-31 07:56] LABS: BUN/CREATININE RATIO 15.55; CALCIUM SERUM 8.4 mg/dL (8.4-10.2); CREATININE SERUM 0.9 mg/dL (0.6-1.4); GLOM FILT RATE Estimated 74.6 mL/min (>60); POTASSIUM 4.5 mmol/L (3.5-5.1)
[2016-11-02 06:42] LABS: HEMATOCRIT 33.9 % (35.0-45.0); MEAN CELL VOLUME 100.9 FL (83-96); MEAN CORPUSCULAR HEMOGLOBIN 32.8 PG (28-34); MEAN CORPUSCULAR HGB CONC 32.5 g/dL (30-36); MEAN PLATELET VOLUME 10.1 FL (6.5-11.5); RED BLOOD COUNT 3.36 X10e (3.90-5.30); RED CELL DISTRIBUTION WIDTH 15.1 % (11.0-15.5); WHITE BLOOD COUNT 4.6 X10e3 (4.0-10.5)
[2016-11-02 07:10] LABS: BUN/CREATININE RATIO 16.36; CALCIUM SERUM 8.9 mg/dL (8.4-10.2); CREATININE SERUM 1.1 mg/dL (0.6-1.4); GLOM FILT RATE Estimated 58.5 mL/min (>60); POTASSIUM 3.6 mmol/L (3.5-5.1)
[2016-11-02] MEDS ORDERED: AMIODARONE HCL200 MG PO (17:00)
[2016-11-02] MEDS ORDERED: MUPIROCIN0.9 GM EXT (17:02)
[2016-11-02] MEDS ORDERED: NILSTAT PO (17:04)
[2016-11-02] MEDS ORDERED: COREG6.25 MG PO (17:06)
[2016-11-02] MEDS ORDERED: KEFLEX500 M1 PO (17:08)
[2016-11-02] MEDS ORDERED: FUROSEMIDE40 MG PO (17:09)
[2016-11-02] MEDS ORDERED: LOSARTAN POTASS50 MG PO (17:11)
[2016-11-02] MEDS ORDERED: ACID CONTROL150 M1 PO (17:13)
[2016-11-02] MEDS ORDERED: K-DUR10 MEQ PO (17:19)
== END 2016-11-02 20:24 | disposition home health service (06) | DRG 292 ==
LOC: CED 22:36 → C5B 10-24 05:10 → CEDOF 10-24 05:10 → CED 10-24 05:13 → C5B 10-24 05:13 → CEDOF 10-24 08:03 → C5B 10-24 08:07 → CEDOF 10-24 08:07 → C5B 11-02 20:24
PROVIDERS: Emergency Medicine; Internal Medicine; Nurse Practitioner
PROC: B24BYZZ Ultrasonography of Heart with Aorta using Other Contrast (ICD-10-PCS; principal; 2016-10-24)
PROC: 05HB33Z Insertion of Infusion Device into Right Basilic Vein, Percutaneous Approach (ICD-10-PCS; 2016-11-01)
DX: I50.33 Acute on chronic diastolic (congestive) heart failure (principal); L03.116 Cellulitis of left lower limb; E11.42 Type 2 diabetes mellitus with diabetic polyneuropathy; R06.00 Dyspnea, unspecified; E87.1 Hypo-osmolality and hyponatremia; I25.9 Chronic ischemic heart disease, unspecified; I48.91 Unspecified atrial fibrillation; K21.9 Gastro-esophageal reflux disease without esophagitis; M06.9 Rheumatoid arthritis, unspecified; I10 Essential (primary) hypertension; J45.909 Unspecified asthma, uncomplicated; B95.61 Methicillin susceptible Staphylococcus aureus infection as the cause of diseases classified elsewhere; Z79.82 Long term (current) use of aspirin; Z86.711 Personal history of pulmonary embolism; M81.0 Age-related osteoporosis without current pathological fracture; E78.5 Hyperlipidemia, unspecified; Z96.653 Presence of artificial knee joint, bilateral; Z90.710 Acquired absence of both cervix and uterus; R60.9 Edema, unspecified; E66.9 Obesity, unspecified; F17.210 Nicotine dependence, cigarettes, uncomplicated; I95.1 Orthostatic hypotension; E87.6 Hypokalemia; D64.9 Anemia, unspecified
CPT/HCPCS: 71010; 78452; 80048; 80053; 80076; 82550; 82553; 82947; 83036; 83735; 83880; 84132; 84443; 84484; 85025; 85027; 85379; 85610; 85730; 87070; 87077; 87186; 87205; 93005; 93017; 93306; 93970; 96374; 97116; 97163; 97165; 99285; A9500; C9113; G8978-GP; G8979-GP; G8980-GP; G8987-GO; G8988-GO; G8989-GO; J0282; J1815; J1940; J2270; J2405; J2785; J2930; J3475

== ENCOUNTER 2016-11-23 19:29 | Inpatient (IN) | payer MEDICARE, OTHER ==
--- NOTE | ~2016-11-23 | HP ---
Unit #: [id number] #: [id number] Patient: CLAIRE BAUTISTA [id number] [address] [place], [place] [address] [id number] I MR#: [id number] NAME: CLAIRE BAUTISTA ROOM: 303 Age: 71 Sex: F Admission Date: 11/24/2016 : 1945 Attending Physician: Susana Duggan M.D. Primary Care Physician: Arely Rodriguez M.D. HISTORY AND PHYSICAL CHIEF COMPLAINT Leg swelling, asterixis. HISTORY This pleasant 71-year-old female with AODM, neuropathy, PAF, PE, hypertension, is admitted for acute kidney injury. Patient was last admitted to this facility one month ago for leg swelling, cellulitis, and developed AFib with RVR during that hospitalization. She states that she was well until about two to three days ago when she began to experience swelling of the legs bilaterally. Notes some discomfort in her pelvic area when urinating, but denies decreased urination or difficulty completely voiding. She presents to this emergency department with an elevated creatinine of 1.8, does have asterixis on exam. Although her legs are large, there is no real pitting that I can see. Her rhythm currently is sinus. PAST MEDICAL HISTORY 1. Paroxysmal atrial fibrillation on amiodarone. Last ejection fraction was normal, negative Cardiolite stress test last month. 2. AODM with peripheral neuropathy. 3. Admission to [facility] this past year for pulmonary embolus, no anticoagulated. 4. Rheumatoid arthritis. 5. Hypertension. 6. GERD. 7. Osteoporosis. 8. Hyperlipidemia. 9. Asthma. 10. Admission 04/2014 for chest pain and accelerated hypertension. 11. Bilateral total knee replacement. 12. Appendectomy. 13. Hysterectomy. ALLERGIES No known drug allergies. HOME MEDICATIONS Advair 100/50 one puff b.i.d.; amiodarone 200 mg daily; Flonase nasal spray; Bactroban p.r.n.; Eliquis 5 mg b.i.d.; Neurontin 100 mg t.i.d.; Elavil 25 mg q.h.s.; nystatin 5 mg q.6 hours; Claritin 10 mg daily; Coreg 12.5 mg b.i.d.; Colace 100 mg b.i.d.; Lasix 40 mg daily; guaifenesin 600 mg b.i.d.; Lipitor 40 mg q.h.s.; losartan 100 mg q.h.s.; zantac 150 mg b.i.d.; aspirin 81 mg daily; potassium 20 mEq daily; baclofen 10 mg b.i.d. Unit #: [id number] #: [id number] Patient: CLAIRE BAUTISTA Conrad p.r.n.; Glucotrol XL 5 mg daily; Singulair 10 mg daily; multivitamin; Movantik, which apparently is for constipation 25 mg daily; nystatin; omeprazole daily; Zofran p.r.n.; and MiraLAX. FAMILY HISTORY Negative for blood clots and CAD. SOCIAL HISTORY The patient lives with her daughter, she is accompanied by her boyfriend. Lifelong nonsmoker, does not drink alcohol. REVIEW OF SYSTEMS Notable for shakiness, pedal edema, diabetes, neuropathy, pulmonary embolus, rheumatoid arthritis, PAF, hypertension, GERD, osteoporosis, hyperlipidemia, asthma, constipation, above mentioned surgeries. All other systems were reviewed and are otherwise negative. PHYSICAL EXAMINATION GENERAL: Pleasant 71-year-old obese female currently is in no acute distress. VITAL SIGNS: Temperature is 98.6, pulse 77, respirations 15, blood pressure 127/95, O2 saturation 100% on room air. HEENT: Eyes - PERRLA. Extraocular movements intact. Pharynx is benign. NECK: Supple without adenopathy or thyromegaly. CHEST: Clear. CARDIAC: Normal S1 and S2 without S3, S4 or murmur. ABDOMEN: Bowel sounds are present. No hepatosplenomegaly, tenderness, or masses. There may be some mild suprapubic tenderness on exam. EXTREMITIES: Without pitting edema. Pedal pulses are diminished. No ulcers on the feet. NEUROLOGIC: Patient is awake, alert, and oriented. Cranial nerves are intact. Equal strength throughout. DIAGNOSTIC STUDIES ADMISSION LABS: Hematocrit is 31, down from 34 last month, normal white count, platelet count and coags. [facility] 12 - glucose 140, BUN 25, creatinine 1.8 from a BUN of 18, creatinine 1.1 last month. Sodium 129, chloride 94, normal BNP. Cardiac markers are negative. Urinalysis trace leukocyte esterase. Positive without significant white or red cells. No bacteria. IMAGING STUDIES: Chest x-ray - mild cardiomegaly. CARDIOLOGY STUDIES: EKG difficult to read as there appears to be quite a bit of artifact but on the monitor she truly is in a normal sinus rhythm. Rate 83. Some nonspecific ST wave abnormalities. ASSESSMENT 1. Complaints of bilateral leg swelling but there is no pitting edema on exam. 2. Acute kidney injury, which may be related to medications. 3. Mild hyponatremia. 4. Complaints of urinary discomfort. 5. Paroxysmal atrial fibrillation currently in normal sinus rhythm. 6. Asterixis on exam. 7. PE anticoagulated. 8. Rheumatoid arthritis. 9. Asthma, which was stable. Unit #: [id number] #: [id number] Patient: CLAIRE BAUTISTA PLANS 1. Discontinue ARB, give a small bolus of IV fluids, check renal ultrasound and post void bladder scan. 2. Obtain TSH, and venous Dopplers of the legs. 3. Decrease sedatives, obtain ABG and ammonia level. Will also check to see if patient truly is on Movantik and decrease dose. Dictated by Susana Duggan M.D. AML/ts TD: 11/24/2016 05:06 JOB #: [id number] HISTORY AND PHYSICAL Page 1 of 1 X Susana Duggan MD HISTORY AND PHYSICAL
--- NOTE | ~2016-11-23 | US77 ---
[facility] A Service of [facility] & [facility] RADIOLOGY TEXT RESULTS PATIENT: CLAIRE BAUTISTA LOCATION: [facility] 303- : 45 UNIT #: [id number] AGE: [address]: Stevo Irizarry MD SEX: F ORDER DR: [id number] [facility] [address]. [place], [place] [address] [id number] I MR#: [id number] #: [id number] NAME: CLAIRE BAUTISTA. : 1945 SEX: F STUDY DATE/TIME: 11/24/2016 8:51 UNIT: [address] ROOM: [facility] STUDY DESCRIPTION: US Kidney Bilateral Complete Attending Physician: Stevo Irizarry M.D. Ordering Physician: Susana Duggan M.D. Primary Care Physician: Arely Rodriguez M.D. MEDICAL IMAGING REPORT This report is preliminary unless electronic signature is present EXAM Renal ultrasound bilateral 11/24/2016 INDICATION 71-year-old female with abdominal pain. Acute renal injury. BUN 18, creatinine 1.3, GFR 47. TECHNIQUE Sonographic imaging of the kidneys was performed bilaterally. Correlation is made with CT 12/22/2014. FINDINGS The right kidney measures 8.5 x 4.1 x 4.1 cm. The left kidney could not be identified due to obscuration by bowel gas. There is no hydronephrosis or shadowing stone on the right. Bladder decompressed by a Doran catheter and not visualized. IMPRESSION The bladder and left kidney cannot be identified for the reasons described above. To the extent visualized, the right kidney demonstrates no hydronephrosis or shadowing stone. There is atrophy of the right kidney. Dictated by... Jayy Mccoy M.D. THIS IS AN ELECTRONICALLY VERIFIED REPORT Jayy Mccoy M.D. at 11/24/2016 2:59 PM SUMA/tam TD: 11/24/2016 13:31 JOB #: [id number] [facility] A Service of [facility] & [facility] RADIOLOGY TEXT RESULTS PATIENT: CLAIRE BAUTISTA LOCATION: [facility] 303-01 : [birth year] UNIT #: [id number] AGE: [address]: Stevo Irizarry MD SEX: F ORDER DR: MEDICAL IMAGING REPORT Page 1 of 1 COPY
--- NOTE | ~2016-11-23 | DS ---
Unit #: [id number] #: [id number] Patient: CLAIRE BAUTISTA [id number] [facility]. [place] [address] [id number] I MR#: [id number] NAME: CLAIRE BAUTISTA ROOM: 303 Age: 71 Sex: F Admission Date: 11/24/2016 : 1945 Discharge Date: 11/24/2016 Attending Physician: Stevo Irizarry M.D. Primary Care Physician: Arely Rodriguez M.D. DISCHARGE SUMMARY SHORT STAY SUMMARY ADMISSION DIAGNOSES 1. Complaints of bilateral lower extremity edema without pitting edema on clinical examination. 2. Acute kidney injury possibly related to medications. 3. Mild hyponatremia. 4. Dysuria. 5. Paroxysmal atrial fibrillation, currently in normal sinus rhythm. 6. Asterixis on exam. 7. Pulmonary embolism, anticoagulated. 8. Rheumatoid arthritis. 9. Asthma, stable. DISCHARGE DIAGNOSES 1. Mild bilateral lower extremity edema, no pitting. 2. Acute kidney injury, resolving. 3. Mild hyponatremia, resolved. 4. Dysuria. Urinalysis negative for infection. 5. History of paroxysmal atrial fibrillation, in normal sinus rhythm. 6. Asterixis, resolved. 7. Recent pulmonary embolism, anticoagulated on Eliquis. 8. Rheumatoid arthritis. 9. Asthma, stable. 10. Obesity, body mass index 37. 11. Recent left lower extremity cellulitis, resolved with left lower extremity wound completely healed. CONSULTANTS None. PROCEDURES None. DIAGNOSTIC STUDIES LABORATORY: WBC 4.4, hemoglobin 10.5, hematocrit 32.1, platelets 188,000. Sodium 137, potassium 3.8, chloride 105, CO2 23, glucose 103, BUN 18, creatinine 1.3, calcium 8.7. TSH 0.78. Ammonia 42. Urinalysis - Leukocyte esterase trace, nitrite negative, protein negative, glucose negative, ketone negative, blood negative, 5. Urine culture and sensitivity not indicated. Troponin I less than 0.05, less than 0.05. INR 1. IMAGING: Ultrasound of bilateral kidneys - Bladder and left kidney cannot be identified "for the reasons described above." To the extent Unit #: [id number] #: [id number] Patient: CLAIRE BAUTISTA visualized, the right kidney demonstrates no hydronephrosis or shadowing stone. There is atrophy of the right kidney. Bilateral lower extremity duplex venous Doppler. Impression - No evidence of lower extremity deep or superficial venous thrombosis in bilateral lower extremities. Left popliteal fossa Carpio cyst measuring 1.4 cm x 0.7 cm x 3.6 cm. Portable chest x-ray. Impression - No active process. CARDIOVASCULAR: Review of two-D echocardiogram report dated 10/24/16. Conclusion - Ejection fraction visually estimated 50% to 55%. Normal wall motion. Mild concentric LVH. LV size normal. Normal diastolic filling pattern for age. Mild mitral regurgitation and [id number] tricuspid regurgitation with RV systolic pressure of approximately 28 mmHg. No evidence of pleural or pericardial effusion. CONDITION Stable. DISPOSITION PLAN Home with family after evaluated by physical therapy and occupational therapy if safe for discharge. DISCHARGE INSTRUCTIONS 1. Patient is to resume her 1,000 mL/24 hour fluid restriction as she was discharged on from this facility at the end of October this year. 2. Continue a 2- to 4-gram sodium diet. 3. Elevate her feet when seated. 4. Doran catheter is to be removed now, and she is to void prior to discharge. 5. Will continue [facility] home [facility] services, as she is established with them at this time to monitor fluid and medication management. 6. She is to call and schedule followup appointment with her primary care physician in 3-4 days for BMP and ammonia level. DISCHARGE MEDICATIONS 1. Advair Diskus 100/50 mcg 1 puff inhaled b.i.d. 2. Zofran ODT 1 tab p.o. q.8 hours p.r.n. nausea. 3. Cordarone 200 mg p.o. daily. 4. Tylenol 650 mg p.o. q.6 hours p.r.n. pain with maximum of 3 grams per 24 hours from all sources. 5. Flonase 0.05% nasal spray, 1 spray inhaled nasally in each nostril. 6. Eliquis 5 mg p.o. b.i.d. 7. Neurontin 100 mg p.o. daily as needed for hand shaking. 8. Amitriptyline 25 mg p.o. at bedtime. 9. Claritin 10 mg p.o. daily. 10. Carvedilol 12.5 mg p.o. b.i.d. 11. Colace 100 mg p.o. b.i.d. 12. MiraLAX 17 grams p.o. daily. 13. Furosemide 40 mg p.o. daily. 14. Humibid LA 600 mg p.o. b.i.d. 15. Lipitor 40 mg p.o. at bedtime. 16. Change losartan to 50 mg p.o. at bedtime. This medication adjustment was made secondary to the patient's elevated creatinine on admission. 17. Ranitidine 150 mg tablet 1 p.o. b.i.d. 18. Singulair 10 mg p.o. daily. 19. Multivitamin 1 tab p.o. daily. Unit #: [id number] #: [id number] Patient: CLAIRE BAUTISTA 20. Aspirin 81 mg p.o. q.24 hours. 21. Hydrocodone/acetaminophen 7.5/325 mg tablet 1 p.o. q.i.d. p.r.n. pain from home medication supply. No prescription written. 22. K-Dur 20 mEq p.o. daily. 23. Baclofen 10 mg p.o. b.i.d. as needed for muscle spasm. 24. Glucotrol XL 5 mg p.o. daily. HOSPITAL COURSE The patient is a 71-year-old female who presented to [facility] with complaints of leg swelling and shaking hands. The patient was recently discharged from this facility on 11/02/16 after having been treated for bilateral lower extremity edema, left lower extremity cellulitis, which has now completely resolved, dyspnea status post negative Cardiolite stress test and atrial fibrillation with RVR, treated with amiodarone and beta-darrell, for which the patient is in sinus rhythm at this time. In the emergency department the patient complained of discomfort in the pelvic area when urinating but denied decreased urination or difficulty with complete voiding. Creatinine was mildly elevated at 1.8, and she was noted to have asterixis on exam. The patient did not exhibit pitting edema on clinical examination. She was noted to be in sinus rhythm. She was admitted to the hospital for further evaluation and management of acute kidney injury, which was believed to possibly be related to her medications. Please refer to the history and physical report for complete details. Bilateral lower extremity: The patient had bilateral lower extremity duplex venous Dopplers performed. The report reveals that there is no evidence of DVT or superficial thrombus in either lower extremity at the time of the evaluation. The patient was noted to have a Carpio cyst in the left popliteal fossa. The patient does not exhibit pitting edema in either lower extremity at this time. Left lower extremity left pretibial wound present on discharge in October of this year is completely healed, and there is no evidence of erythema or infection at this time. The patient has been advised to resume the 1,000 mL/24 hour fluid restriction, to be compliant with her medications - including Lasix, follow a 2- to 4-gram sodium diet and to follow up with her primary care physician as dictated above. Acute kidney injury: The patient was treated in the emergency department with IV fluid bolus. Renal ultrasound was performed with results as dictated above. The patient's creatinine has decreased from 1.8 to 1.3 today. She is having no complaints in this regard. Her Doran catheter will be discontinued, and she will void prior to discharge home today. The patient has been advised to follow up with her primary care physician, as dictated above, for repeat BMP to reassess electrolytes and renal function. The patient was noted to have a mild hyponatremia on admission, which is resolved. History of paroxysmal atrial fibrillation: The patient was started on amiodarone prior to discharge and was in sinus rhythm the end of October of 2016. The patient's has been maintained on telemetry and remains in sinus rhythm. History of PE: The patient has complained of no dyspnea. Bilateral lower extremity duplex venous Dopplers are negative for a DVT. The patient has remained on Eliquis 5 mg p.o. b.i.d. Unit #: [id number] #: [id number] Patient: CLAIRE BAUTISTA Rheumatoid arthritis: The patient is not on disease modifying antirheumatoid drugs at this time. She has had no complaints specifically about her joints. She will follow with her primary care physician. Asthma: Stable. The patient has had no complaints of dyspnea during this hospital course. Asterixis: This has not been observed today either by Dr. Irizarry or me. The patient's ammonia was noted to be mildly elevated. I recommended that the patient have an ammonia level checked when she follows up with her primary care physician in 3-4 days for BMP check. The patient states that she is treated with Neurontin for shaking hands. Recent left lower extremity cellulitis, completely resolved. Obesity. BMI 37. Weight loss is recommended, as the patient does appear to have peripheral obesity in both her legs and feet. The patient has been evaluated by Dr. Irizarry. She is awake, alert, oriented x3, tolerating food and fluids well. Has no dyspnea. Vital signs and lab work is stable. She will be evaluated by physical therapy and occupational therapy prior to discharge to confirm that she is safe to go home. This plan has been discussed with the patient, her significant other and another family member in the room at this time. All are in agreement with the plan. Dictated by... Frieda Abernathy A.P.R.N. for Kristi Ortega/liam TD: 11/27/2016 10:16 JOB #: [id number] DISCHARGE SUMMARY Page 1 of 1 X Frieda Abernathy APRN X DISCHARGE SUMMARY
--- NOTE | ~2016-11-23 | EKG ---
PATIENT: CLAIRE BAUTISTA UNIT #: [id number] Ventricular Rate: 83 BPM Atrial Rate: 83 BPM P-R Interval: 180 ms QRS Duration: 58 ms Q-T Interval: 510 ms QTC Calculation(Bezet): 599 ms P Cerulean: 108 degrees Calculated R Cerulean: 18 degrees Calculated T Cerulean: -25 degrees Diagnosis Line: ?? Normal sinus rhythm Diagnosis Line: Septal infarct , age undetermined Diagnosis Line: ST and T wave abnormality, consider inferior Diagnosis Line: ischemia Diagnosis Line: ST and T wave abnormality, consider anterior Diagnosis Line: ischemia Diagnosis Line: Prolonged QT Diagnosis Line: Very poor data quality Diagnosis Line: Abnormal ECG Diagnosis Line: When compared with ECG of 31-OCT-2016 20:37, Diagnosis Line: Significant changes have occurred Diagnosis Line: Confirmed by CHAU BEARD, MAYLIN ([id number]) on Diagnosis Line: 11/26/2016 10:39:54 AM INTERPRETING MDDang MARINO
--- NOTE | ~2016-11-23 | CR72 ---
[facility] A Service of [facility] & [facility] RADIOLOGY TEXT RESULTS PATIENT: CLAIRE BAUTISTA LOCATION: [facility] 303-01 : 45 UNIT #: [id number] AGE: [address]: Stevo Irizarry MD SEX: F ORDER DR: [id number] [facility] [address] [place], [place] [address] [id number] MR#: [id number] Acc #: [id number] NAME: CLAIRE BAUTISTA : 1945 SEX: F STUDY DATE/TIME: 11/23/2016 21:23 UNIT: [facility] ROOM: STUDY DESCRIPTION: CR Chest Single View Portable Attending Physician: Kenia Matthew M.D. Ordering Physician: Kenia Matthew M.D. Primary Care Physician: Arely Rodriguez M.D. MEDICAL IMAGING REPORT This report is preliminary unless electronic signature is present EXAM Portable chest INDICATIONS Chest pain for the past month. PROCEDURE Frontal view chest. COMPARISON 10/23/2016 FINDINGS Mild cardiomegaly is stable. Pulmonary vessels are unchanged. No dense consolidation, pleural fluid or pneumothorax. IMPRESSION No active process. Dictated by... Moustapha Ness M.D. THIS IS AN ELECTRONICALLY VERIFIED REPORT Moustapha Ness M.D. at 11/24/2016 9:32 AM EED/psc TD: 11/23/2016 23:04 JOB #: [id number] MEDICAL IMAGING REPORT Page 1 of 1 COPY
--- NOTE | ~2016-11-23 | US84 ---
[id number] [facility]. [facility] [address] [place], [place] [address] [id number] MR#: [id number] Acc #: [id number] NAME: CLAIRE BAUTISTA : 1945 SEX: F STUDY DATE/TIME: 11/24/2016 8:18 UNIT: [id number] PCU ROOM: 303 STUDY DESCRIPTION: US LE Veins Complete Fabien Stdy Attending Physician: Stevo Irizarry M.D. Ordering Physician: Susana Duggan M.D. Primary Care Physician: Arely Rodriguez M.D. MEDICAL IMAGING REPORT This report is preliminary unless electronic signature is present EXAM Lower extremity venous ultrasound complete bilateral 11/24/2016 HISTORY Swelling, bilateral lower extremity pain for 2 months. FINDINGS Lower extremity venous ultrasound performed bilaterally. Lundberg-scale, color Doppler, Doppler pulse-wave interrogation utilized. The bilateral common femoral, femoral, profunda femoris, popliteal, anterior tibial, posterior tibial, and peroneal veins show normal compressibility where anatomically possible and normal Doppler interrogation demonstrating cikp-uh-galn flow on color Doppler imaging. The bilateral great saphenous veins are patent. There is no evidence of deep or superficial venous thrombosis in bilateral lower extremities. In the left popliteal fossa, there is a small synovial/Carpio's cyst measuring 1.48 cm x 0.77 cm x 3.60 cm. IMPRESSION 1. No evidence of lower extremity deep or superficial venous thrombosis in bilateral lower extremities at time of this examination. 2. Left popliteal fossa synovial/Carpio's cyst measuring approximately 1.4 cm x 0.7 cm x 3.6 cm. Dictated by... Leandro Huynh M.D. THIS IS AN ELECTRONICALLY VERIFIED REPORT Leandro Huynh M.D. at 11/29/2016 10:14 AM FRIDA/tam TD: 11/24/2016 12:16 JOB #: [id number] MEDICAL IMAGING REPORT Page 1 of 1 COPY
[~2016-11-23 19:29] MED LIST changes: +ACID CONTROL150 M1 PO; +ADVAIR 100-501 EACH INH; +ALL DAY ALLERGY10 M3 PO; +AMIODARONE HCL200 MG PO; +AMITRIPTYLINE H25 MG PO; +ASPIRIN1 GM PO; +COREG6.25 MG PO; +DOCUSATE SODIU100 MG PO; +ELIQUIS5 MG PO; +FLONASE 0.05% N16 GM; +FUROSEMIDE40 MG PO; +GLUCOTROL XL5 M1 PO; +K-DUR10 MEQ PO; +KEFLEX500 M1 PO; +LOSARTAN POTASS50 MG PO; +MUCINEX100 MG PO; +MUPIROCIN0.9 GM EXT; +NILSTAT PO
[2016-11-23] MEDS ORDERED: AMIODARONE HCL200 MG PO (19:38)
[2016-11-23] MEDS ORDERED: ADVAIR 100-501 EAC1 INH (19:38)
[2016-11-23] MEDS ORDERED: FLONASE 0.05% N16 G1 (19:39)
[2016-11-23] MEDS ORDERED: BACTROBAN15 GM TOP (19:39)
[2016-11-23] MEDS ORDERED: ELIQUIS5 MG PO (19:39)
[2016-11-23] MEDS ORDERED: AMITRIPTYLINE H25 MG PO (19:41)
[2016-11-23] MEDS ORDERED: NEURONTIN100 MG PO (19:41)
[2016-11-23] MEDS ORDERED: CARVEDILOL12.5 MG PO (19:42)
[2016-11-23] MEDS ORDERED: NYSTATIN100000 UN1 PO (19:42)
[2016-11-23] MEDS ORDERED: DOCUSATE SODIU100 MG PO (19:42)
[2016-11-23] MEDS ORDERED: CLARITIN10 M3 PO (19:42)
[2016-11-23] MEDS ORDERED: FUROSEMIDE40 MG PO (19:43)
[2016-11-23] MEDS ORDERED: KEFLEX500 MG PO (19:43)
[2016-11-23] MEDS ORDERED: LIPITOR40 MG PO (19:44)
[2016-11-23] MEDS ORDERED: GUAIFENESIN600 M1 PO (19:44)
[2016-11-23] MEDS ORDERED: LOSARTAN POTAS100 MG PO (19:44)
[2016-11-23] MEDS ORDERED: K-DUR20 ME1 PO (19:45)
[2016-11-23] MEDS ORDERED: ACID CONTROL150 MG PO (19:45)
[2016-11-23] MEDS ORDERED: ASPIRIN81 M2 PO (19:45)
[2016-11-23] MEDS ORDERED: GLUCOTROL XL5 M1 PO (19:46)
[2016-11-23] MEDS ORDERED: SINGULAIR PO (19:46)
[2016-11-23] MEDS ORDERED: BACLOFEN10 MG PO (19:46)
[2016-11-23] MEDS ORDERED: MOVANTIK25 MG PO (19:47)
[2016-11-23] MEDS ORDERED: MULTIVITAMINS1 EAC4 PO (19:47)
[2016-11-23] MEDS ORDERED: NYSTATIN1 EAC1 TOP (19:48)
[2016-11-23] MEDS ORDERED: OMEPRAZOLE20 M1 PO (19:48)
[2016-11-23] MEDS ORDERED: ZOFRAN ODT4 M1 PO (19:49)
[2016-11-23] MEDS ORDERED: GLYCOLAX119 GM PO (19:50)
[2016-11-23 21:19] LABS: BASOPHIL% 0.5 % (0-2.5); DIFF IND NO; EOSINOPHIL# 0.2 X10e3 (0-0.7); EOSINOPHIL% 3.6 % (0.0-7.0); HEMATOCRIT 30.9 % (35.0-45.0); LYMPHOCYTE# 2.1 X10e3 (1.0-3.5); LYMPHOCYTE% 40.8 % (17.0-45.0); MEAN CELL VOLUME 99.5 FL (83-96); MEAN CORPUSCULAR HEMOGLOBIN 32.3 PG (28-34); MEAN CORPUSCULAR HGB CONC 32.5 g/dL (30-36); MEAN PLATELET VOLUME 8.5 FL (6.5-11.5); MONOCYTE# 0.8 X10e3 (0-1.0); NEUTROPHIL% 39.1 % (40-75); PLATELET COUNT 233 X10e3 (140-420); RED CELL DISTRIBUTION WIDTH 14.9 % (11.0-15.5); WHITE BLOOD COUNT 5.2 X10e3 (4.0-10.5)
[2016-11-23 21:31] LABS: POC - CKMB 1.6 ng/mL (0.0-7.9); POC - TROPONIN <0.05 ng/mL (<=0.05)
[2016-11-23 21:43] LABS: ALBUMIN SERUM 3.9 g/dL (3.5-5.0); BILIRUBIN, DIRECT 0.1 mg/dL (0.0-0.2); BILIRUBIN,INDIRECT 0.8 mg/dL (0.0-0.9); BILIRUBIN,TOTAL 0.9 mg/dL (0.2-2.0); BUN/CREATININE RATIO 13.88; CALCIUM SERUM 8.5 mg/dL (8.4-10.2); CREATININE SERUM 1.8 mg/dL (0.6-1.4); GLOM FILT RATE Estimated 32.3 mL/min (>60); POTASSIUM 3.8 mmol/L (3.5-5.1); PROTEIN TOTAL SERUM 6.8 g/dL (6.0-8.3)
[2016-11-23 22:09] LABS: PARTIAL THROMBOPLASTIN TIME 26.6 SECONDS (23.5-31.3); PROTHROMBIN TIME (PATIENT) 10.4 SECONDS (10.0-11.7)
[2016-11-23 23:21] LABS: URINE SOURCE CLEAN CATCH
[2016-11-23 23:26] LABS: URINE APPEARANCE CLEAR; URINE BILIRUBIN NEG (NEG); URINE BLOOD NEG (NEG); URINE COLOR YELLOW; URINE GLUCOSE NEG (NEG); URINE KETONE NEG (NEG); URINE LEUKOCYTE ESTERASE TRACE (NEG); URINE NITRATE NEG (NEG); URINE PROTEIN NEG (NEG); URINE SPECIFIC GRAVITY 1.008 (1.003-1.035); URINE UROBILINOGEN 0.2 MG/DL (NEG)
[2016-11-23 23:29] LABS: URBCS1 AUWI 0-2 /[HPF] (0-2); URINE BACTERIA AUWI NEG (NEGATIVE); URINE SQUAMOUS EPITHELIAL CELL OCC /[HPF]; UWBCS1 AUWI 0-2 (0-5)
[2016-11-23 23:31] LABS: CULTURE INDICATED? NO
[2016-11-23 23:38] LABS: POC - CKMB 1.7 ng/mL (0.0-7.9); POC - TROPONIN <0.05 ng/mL (<=0.05)
[2016-11-24 01:54] LABS: ARTERIAL BLD GAS O2 SATURATION 92.2 % (90.0-100.0); ARTERIAL BLOOD GAS ALLEN TEST NORMAL; ARTERIAL BLOOD GAS ART SITE RIGHT RADIAL; ARTERIAL BLOOD GAS CARBOXY HB 0.8 %sat (0.0-9.0); ARTERIAL BLOOD GAS HCO3 28.8 mmol/L; ARTERIAL BLOOD GAS MET HB 0.6 %sat (0.0-2.0); ARTERIAL BLOOD GAS PO2 66.7 mmHg (80.0-100); ARTERIAL BLOOD GAS pH 7.434 (7.350-7.450); ARTERIAL DRAW? YES
[2016-11-24] MEDS ORDERED: NORCO 7.5-3251 EACH PO (03:18)
[2016-11-24 05:27] LABS: HEMATOCRIT 32.1 % (35.0-45.0); HEMOGLOBIN 10.5 gm/dL (12.0-16.0); MEAN CELL VOLUME 101.6 FL (83-96); MEAN CORPUSCULAR HEMOGLOBIN 33.1 PG (28-34); MEAN CORPUSCULAR HGB CONC 32.6 g/dL (30-36); MEAN PLATELET VOLUME 9.2 FL (6.5-11.5); RED BLOOD COUNT 3.16 X10e (3.90-5.30); WHITE BLOOD COUNT 4.4 X10e3 (4.0-10.5)
[2016-11-24 07:06] LABS: BUN/CREATININE RATIO 13.84; CALCIUM SERUM 8.7 mg/dL (8.4-10.2); CREATININE SERUM 1.3 mg/dL (0.6-1.4); GLOM FILT RATE Estimated 47.8 mL/min (>60); POTASSIUM 3.8 mmol/L (3.5-5.1)
[2016-11-24] MEDS ORDERED: TYL325 PO (15:24)
== END 2016-11-24 17:05 | disposition home or self-care (01) | DRG 683 ==
LOC: CED 19:29 → C3A PCU 11-24 01:20 → CEDOF 11-24 01:20 → CED 11-24 01:24 → C3A PCU 11-24 02:17 → CEDOF 11-24 02:17 → C3A PCU 11-24 06:37
PROVIDERS: Internal Medicine; Student in an Organized Health Care Education/Training Program
DX: N17.9 Acute kidney failure, unspecified (principal); E87.1 Hypo-osmolality and hyponatremia; E11.42 Type 2 diabetes mellitus with diabetic polyneuropathy; E11.65 Type 2 diabetes mellitus with hyperglycemia; T50.905A Adverse effect of unspecified drugs, medicaments and biological substances, initial encounter; Y92.9 Unspecified place or not applicable; R25.1 Tremor, unspecified; R30.0 Dysuria; I48.0 Paroxysmal atrial fibrillation; Z79.01 Long term (current) use of anticoagulants; R60.0 Localized edema; R27.8 Other lack of coordination; E66.9 Obesity, unspecified; Z68.37 Body mass index [BMI] 37.0-37.9, adult; J45.909 Unspecified asthma, uncomplicated; M06.9 Rheumatoid arthritis, unspecified; I10 Essential (primary) hypertension; K21.9 Gastro-esophageal reflux disease without esophagitis; E78.5 Hyperlipidemia, unspecified; Z90.710 Acquired absence of both cervix and uterus; Z96.653 Presence of artificial knee joint, bilateral; Z86.711 Personal history of pulmonary embolism
CPT/HCPCS: 36415; 36600; 71010; 76770; 80048; 80076; 81003; 82140; 82553; 82803; 83880; 84443; 84484; 85025; 85027; 85610; 85730; 93005; 93970; 94664; 94760; 97162; 99285; G8978-GP; G8979-GP; G8980-GP